=== PATIENT | female | born 1940 | race Caucasian/White ===

== ENCOUNTER → 2016-12-27 | Outpatient (CLI) | payer MEDICARE, OTHER | END | disposition home or self-care (01) | LOC: CFH 09:40 | PROVIDERS: ATTEND Nurse Practitioner | DX: Z12.31 Encounter for screening mammogram for malignant neoplasm of breast (principal); M85.88 Other specified disorders of bone density and structure, other site | CPT/HCPCS: 77063; 77080; G0202 ==

== ENCOUNTER 2020-08-13 11:52 | Emergency (ER) | payer MEDICARE, OTHER ==
[~2020-08-13] VITALS: Ht 162.6 cm; Wt 63.5 kg
--- NOTE | 2020-08-13 12:15 | NUR ---
assumed care of pt. pt here c/o GLF x2 with +LOC today. pt reports that the first time that she fell she was outside on her steps and passed out then hit her head. pt reports that she woke up on the ground. pt reports that the second fall was about 30 minutes to an hour later and she the same thing happened in her hallway inside her house. pt has mulitple abrasions to the R side of her body but all have been cleaned and dressed [employer]. pt is A&O x4 and able to [facility] pt has swelling, bruising and pain to R foot. LE elevated and ice pack applied pt reports that she has no medical problems. states that she had a similar episode about 15 years ago will full medical evaluation and hospitalization without finding any reason for her LOC pt denies ALICEA, no back pain. no dizziness or loss or change of vision. WILL. SO at bedside
--- NOTE | 2020-08-13 12:45 | NUR ---
Dr. Doyle has been to bedside for eval
[2020-08-13 13:21] LABS: BASOPHILS % (AUTO) 0 % (0-1); EOSINOPHILS % (AUTO) 2 % (1-7); LYMPHOCYTES % (AUTO) 11 % (22-44); MEAN CORPUSCULAR HEMOGLOBIN 31.3 pg (27.0-34.8); MEAN CORPUSCULAR HGB CONC 33.8 g/dL (32.4-35.8); MEAN PLATELET VOLUME 7.6 fL (7.4-10.4); MONOCYTES % (AUTO) 5 % (2-9); NEUTROPHILS % (AUTO) 82 % (42-75); PLATELET COUNT 164 x10^3/uL (130-400); RED BLOOD COUNT 4.59 x10^6/uL (3.82-5.3); RED CELL DISTRIBUTION WIDTH 13.5 % (9.6-15.2)
[2020-08-13 13:31] LABS: ALBUMIN 3.5 g/dL (3.4-5.0); ANION GAP 6 mmol/L (5-15); CALCIUM 8.9 mg/dL (8.5-10.1); CHLORIDE 105 mmol/L (98-107); CREATININE 0.76 mg/dL (0.55-1.02)
[2020-08-13 13:34] LABS: TROPONIN I < 0.015 ng/mL (0.000-0.045)
--- NOTE | 2020-08-13 13:44 | NUR ---
pt to RAD via [facility]
--- NOTE | 2020-08-13 14:33 | NUR ---
pt has returned from RAD. assisted to BR with tech. well tolerated. awaiting test results. updated on POC
--- NOTE | 2020-08-13 14:38 | NUR ---
chart up for MD recheck
--- NOTE | 2020-08-13 14:59 | NUR ---
pt updated on POC. awaiting MD recheck report to Avni FOWLER
--- NOTE | 2020-08-13 15:11 | NUR ---
REPORT OF PT FROM JANETH MARTIN AND ASSUMING CARE OF PT AT THIS TIME.
--- NOTE | 2020-08-13 15:50 | NUR ---
DR GONZALES AT BS AT THIS TIME TO DISCUSS PT DISPO. PT VSS AND CALL LIGHT IS WITHIN REACH.
--- NOTE | 2020-08-13 16:12 | NUR ---
PT PLACED IN SPLINT BY DIRECTOR PACKAGINGNAVJOT PAIGE PER ERP ORDERS. HOME CARE INSTRUCTIONS AND F/U CARE EDUCATION PROVIDED TO PT AND PT VERBALIZES UNDERSTANDING. PT WHEELED IN WHEELCHAIR TO REGISTRATION DESK FOR D/C HOME WITH SPOUSE. PT AND SPOUSE DENY ANY OTHER NEEDS PERTAINING TO THIS VISIT. PT PROVIDED WITH D/C SUMMARY PRIOR TO D/C.
== END 2020-08-13 16:20 | disposition home or self-care (01) ==
LOC: ED 13:35
DX: S93.491A Sprain of other ligament of right ankle, initial encounter (principal); S00.83XA Contusion of other part of head, initial encounter; S90.32XA Contusion of left foot, initial encounter; S80.211A Abrasion, right knee, initial encounter; M25.522 Pain in left elbow; R55 Syncope and collapse; R07.9 Chest pain, unspecified; W01.0XXA Fall on same level from slipping, tripping and stumbling without subsequent striking against object, initial encounter; R94.31 Abnormal electrocardiogram [ECG] [EKG]; Y93.89 Activity, other specified; Y92.009 Unspecified place in unspecified non-institutional (private) residence as the place of occurrence of the external cause; Y99.8 Other external cause status
CPT/HCPCS: 36415; 70450; 71045; 80048; 82040; 84484; 85025; 93005; 99285